=== PATIENT | male | born 1955 | race Caucasian/White ===

== ENCOUNTER 2017-07-19 16:44 | Emergency (ER) | payer SELFPAY ==
[~2017-07-19] VITALS: Ht 182.9 cm; Wt 77.3 kg
[2017-07-19] MEDS ORDERED: COZAAR 25MG25 MG/TAB PO (18:29)
[2017-07-19 18:53] VITALS: BP 136/102; PULSE 91; TEMP 97.5
== END 2017-07-19 18:53 | disposition home or self-care (01) ==
LOC: COL.ER 16:44
DX: S01.81XA Laceration without foreign body of other part of head, initial encounter (principal); S61.412A Laceration without foreign body of left hand, initial encounter; I10 Essential (primary) hypertension; Z23 Encounter for immunization; W01.0XXA Fall on same level from slipping, tripping and stumbling without subsequent striking against object, initial encounter; Y92.009 Unspecified place in unspecified non-institutional (private) residence as the place of occurrence of the external cause

== ENCOUNTER 2017-07-25 11:52 | Emergency (ER) | payer OTHER ==
[~2017-07-25 11:52] MED LIST: COZAAR 25MG25 MG/TAB PO
[2017-07-25 12:03] VITALS: BP 151/95; PULSE 80
== END 2017-07-25 12:12 | disposition home or self-care (01) ==
LOC: COL.ER 11:52
DX: S01.112D Laceration without foreign body of left eyelid and periocular area, subsequent encounter (principal); X58.XXXD Exposure to other specified factors, subsequent encounter

== ENCOUNTER → 2020-05-31 | Outpatient (CLI) | payer MEDICARE | LOC: COL.LAB 08:09 | DX: R11.0 Nausea (principal); R53.83 Other fatigue; R68.83 Chills (without fever); Z20.828 Contact with and (suspected) exposure to other viral communicable diseases ==

== ENCOUNTER 2020-09-12 12:29 | Inpatient (IN) | payer MEDICARE, MEDICAID ==
[~2020-09-12] VITALS: Ht 185.4 cm; Wt 78.1 kg
[2020-09-12 12:50] LABS: HEMATOCRIT 39.1 % (42.0-52.0); HEMOGLOBIN 12.6 g/dl (13.5-18.0); MEAN CELL VOLUME 118 fl (80.0-100.0); MEAN CORPUSCULAR HEMOGLOBIN 38 pg (27.0-31.0); MEAN CORPUSCULAR HGB CONC 32 g/dl (33.0-37.0); MEAN PLATELET VOLUME 10.6 fl (7.4-10.4); PLATELET COUNT 153 K/mm3 (130-400); RED BLOOD COUNT 3.32 M/mm3 (4.20-5.60)
[2020-09-12 13:02] LABS: ALBUMIN 4.3 gm/dL (3.5-5.0); ALKALINE PHOSPHATASE 227 U/L (50-136); ANION GAP 36 mmol/L (7-16); AST,SGOT 252 U/L (15-37); BILIRUBIN,TOTAL 3.5 mg/dL (0.0-1.0); BLOOD UREA NITROGEN 29 mg/dL (9-20); CALCIUM 8.9 mg/dL (8.4-10.2); CHLORIDE 93 mmol/L (98-107); CREATINE KINASE 90 U/L (55-170); CREATININE, serum 2.63 (0.66-1.25); GLUCOSE 205 mg/dL (74-106); POTASSIUM 3.8 mmol/L (3.4-5.0); SODIUM 138 mmol/L (137-145); TOTAL PROTEIN 7.2 gm/dL (6.4-8.2)
[2020-09-12 13:07] LABS: ALCOHOL(ethanol),MEDICAL < 10 mg/dL
[2020-09-12 13:08] LABS: ALANINE AMINOTRANSFERASE 154 U/L (4-49); CARBON DIOXIDE 9 mmol/L (22-30)
[2020-09-12 13:13] LABS: TROPONIN-I 0.013 ng/mL (0.000-0.035)
[2020-09-12 13:25] LABS: BAND 6 % (0-10); LYMPHOCYTE 32 % (20.0-51.0); METAMYELOCYTE 3 % (0-0); NEUTROPHILS 56 % (42.0-75.2)
[2020-09-12 13:26] LABS: SPHEROCYTE 1+
[2020-09-12] MEDS ORDERED: PROBIOTIC-MAJOR PO (13:38)
[2020-09-12 16:55] LABS: INR 0.9 (0.8-3.0); PROTHROMBIN TIME 10.5 SECONDS (9.7-12.8)
[2020-09-12 17:08] LABS: CALCIUM 7.7 mg/dL (8.4-10.2); CREATININE, serum 2.22 (0.66-1.25); POTASSIUM 3.6 mmol/L (3.4-5.0)
[2020-09-12 19:59] VITALS: BP 116/83; PULSE 115; TEMP 98.2
[2020-09-12 21:47] VITALS: BP 112/85; PULSE 108; TEMP 98.5
[2020-09-12 23:54] VITALS: BP 107/85; PULSE 107; TEMP 98.8
[2020-09-13] VITALS (9 sets, daily range): BP systolic 100–118; BP diastolic 75–90; PULSE 93–107; TEMP 97.6–99.6
[2020-09-13 07:06] LABS: MEAN CORPUSCULAR HGB CONC 34 g/dl (33.0-37.0); MEAN PLATELET VOLUME 11.2 fl (7.4-10.4); PLATELET COUNT 80 K/mm3 (130-400); RED BLOOD COUNT 2.57 M/mm3 (4.20-5.60)
[2020-09-13 07:11] LABS: PROTHROMBIN TIME 11.1 SECONDS (9.7-12.8)
[2020-09-13 07:13] LABS: HEMATOCRIT 28.9 % (42.0-52.0); HEMOGLOBIN 9.8 g/dl (13.5-18.0); MEAN CELL VOLUME 113 fl (80.0-100.0); MEAN CORPUSCULAR HEMOGLOBIN 38 pg (27.0-31.0)
[2020-09-13 07:18] LABS: ALBUMIN 2.8 gm/dL (3.5-5.0); BILIRUBIN,TOTAL 2.5 mg/dL (0.0-1.0); CALCIUM 7.5 mg/dL (8.4-10.2); CREATININE, serum 1.99 (0.66-1.25); TOTAL PROTEIN 5.1 gm/dL (6.4-8.2)
[2020-09-13 07:37] LABS: TROPONIN-I 0.28 ng/mL (0.000-0.035)
[2020-09-13 07:46] LABS: BAND 14 % (0-10); LYMPHOCYTE 10 % (20.0-51.0); METAMYELOCYTE 2 % (0-0); NEUTROPHILS 66 % (42.0-75.2); PLATELET ESTIMATE DECREASED (NORMAL)
[2020-09-13 07:48] LABS: ANISOCYTOSIS 1+
[2020-09-13 17:11] LABS: HEMOGLOBIN 10.8 g/dl (13.5-18.0); MEAN CELL VOLUME 111 fl (80.0-100.0); MEAN CORPUSCULAR HEMOGLOBIN 38 pg (27.0-31.0); MEAN CORPUSCULAR HGB CONC 34 g/dl (33.0-37.0); MEAN PLATELET VOLUME 10.6 fl (7.4-10.4); PLATELET COUNT 92 K/mm3 (130-400); RED BLOOD COUNT 2.86 M/mm3 (4.20-5.60); REDCELL DISTRIBUTION WIDTH-CV 12.7 % (11.5-14.5)
[2020-09-13 17:17] LABS: HEMATOCRIT 31.6 % (42.0-52.0)
[2020-09-13 17:46] LABS: FOLATE (FOLIC ACID) 17.8 ng/mL (7.0-31.4)
[2020-09-14] VITALS (14 sets, daily range): BP systolic 104–119; BP diastolic 72–97; PULSE 92–122; TEMP 97.6–99.1
[2020-09-14 07:37] LABS: BASO # 0.1 (0.0-0.2); BASO % 1.7 % (0.0-2.0); GRAN # 1.8 (1.4-6.5); GRAN % 61.9 % (42.2-75.2); HEMOGLOBIN 10.4 g/dl (13.5-18.0); LYMPH # 0.5 (1.2-3.4); LYMPH % 16.2 % (20.0-51.0); MEAN CELL VOLUME 111 fl (80.0-100.0); MEAN CORPUSCULAR HEMOGLOBIN 38 pg (27.0-31.0); MEAN CORPUSCULAR HGB CONC 35 g/dl (33.0-37.0); MEAN PLATELET VOLUME 11.2 fl (7.4-10.4); MONO # 0.5 (0.1-0.6); MONO % 18.2 % (1.7-9.3); PLATELET COUNT 86 K/mm3 (130-400); RED BLOOD COUNT 2.71 M/mm3 (4.20-5.60); REDCELL DISTRIBUTION WIDTH-CV 12.6 % (11.5-14.5)
[2020-09-14 07:49] LABS: HEMATOCRIT 30.1 % (42.0-52.0)
[2020-09-14 07:57] LABS: ALBUMIN 2.9 gm/dL (3.5-5.0); BILIRUBIN,TOTAL 2.2 mg/dL (0.0-1.0); CREATININE, serum 1.52 (0.66-1.25); MAGNESIUM 1.5 mg/dL (1.6-2.3); POTASSIUM 3.4 mmol/L (3.4-5.0); TOTAL PROTEIN 5.4 gm/dL (6.4-8.2)
[2020-09-14 08:16] LABS: TROPONIN-I 0.144 ng/mL (0.000-0.035)
[2020-09-14 11:25] LABS: COLLECTION METHOD CLEAN CATCH
[2020-09-14 11:40] LABS: CREATININE, serum 1.5 (0.66-1.25)
[2020-09-14 12:13] LABS: MUCOUS Present /lpf; PH 5 (5-8); SQUAMOUS EPITHELIAL None Seen /hpf; URINE APPEARANCE Clear; URINE BACTERIA None Seen /hpf; URINE BILIRUBIN Negative (NEGATIVE); URINE BLOOD 2+ (NEGATIVE); URINE COLOR Amber; URINE GLUCOSE 1+ (NEGATIVE); URINE KETONE Negative (NEGATIVE); URINE LEUKOCYTE ESTERASE 3+ (NEGATIVE); URINE NITRATE Negative (NEGATIVE); URINE PROTEIN(semi-quant) 1+ (NEGATIVE); URINE UROBILINOGEN Negative (NEGATIVE)
[2020-09-15] VITALS (12 sets, daily range): BP systolic 104–123; BP diastolic 79–92; PULSE 105–131; TEMP 97.5–99.7
[2020-09-15 07:00] LABS: BASO # 0.1 (0.0-0.2); BASO % 1.8 % (0.0-2.0); EOS # 0.1 (0.0-0.7); EOS % 1.8 % (0-4.0); GRAN # 1.5 (1.4-6.5); GRAN % 53.5 % (42.2-75.2); HEMOGLOBIN 10.1 g/dl (13.5-18.0); LYMPH # 0.7 (1.2-3.4); LYMPH % 23.2 % (20.0-51.0); MEAN CELL VOLUME 111 fl (80.0-100.0); MEAN CORPUSCULAR HEMOGLOBIN 38 pg (27.0-31.0); MEAN CORPUSCULAR HGB CONC 35 g/dl (33.0-37.0); MEAN PLATELET VOLUME 11.2 fl (7.4-10.4); MONO # 0.5 (0.1-0.6); MONO % 18.3 % (1.7-9.3); PLATELET COUNT 99 K/mm3 (130-400); RED BLOOD COUNT 2.63 M/mm3 (4.20-5.60); REDCELL DISTRIBUTION WIDTH-CV 12.8 % (11.5-14.5)
[2020-09-15 07:09] LABS: CALCIUM 8.5 mg/dL (8.4-10.2); CREATININE, serum 1.08 (0.66-1.25); POTASSIUM 3.5 mmol/L (3.4-5.0)
[2020-09-15 07:54] LABS: HEMATOCRIT 29.3 % (42.0-52.0)
[2020-09-16] VITALS (13 sets, daily range): BP systolic 100–126; BP diastolic 81–97; PULSE 102–128; TEMP 98.1–100.1
[2020-09-16 06:18] LABS: MEAN CELL VOLUME 112 fl (80.0-100.0); MEAN CORPUSCULAR HEMOGLOBIN 38 pg (27.0-31.0); MEAN CORPUSCULAR HGB CONC 34 g/dl (33.0-37.0); MEAN PLATELET VOLUME 10.9 fl (7.4-10.4); PLATELET COUNT 113 K/mm3 (130-400); RED BLOOD COUNT 2.65 M/mm3 (4.20-5.60); REDCELL DISTRIBUTION WIDTH-CV 12.9 % (11.5-14.5)
[2020-09-16 06:20] LABS: CALCIUM 9.2 mg/dL (8.4-10.2); CREATININE, serum 1.02 (0.66-1.25); POTASSIUM 3.9 mmol/L (3.4-5.0)
[2020-09-16 06:31] LABS: HEMATOCRIT 29.7 % (42.0-52.0)
[2020-09-16 08:38] LABS: BAND 22 % (0-10); EOSINOPHIL 2 % (0-4); LYMPHOCYTE 22 % (20.0-51.0); METAMYELOCYTE 1 % (0-0); NEUTROPHILS 31 % (42.0-75.2); PLATELET ESTIMATE DECREASED (NORMAL)
[2020-09-16 11:43] LABS: MAGNESIUM 1.1 mg/dL (1.6-2.3); PHOSPHOROUS 1.9 mg/dL (2.5-4.5)
[2020-09-17] VITALS (11 sets, daily range): BP systolic 86–122; BP diastolic 42–93; PULSE 78–149; TEMP 97–98.3
[2020-09-17 07:07] LABS: MAGNESIUM 1.6 mg/dL (1.6-2.3); POTASSIUM 3.8 mmol/L (3.4-5.0)
[2020-09-18] VITALS (11 sets, daily range): BP systolic 88–116; BP diastolic 62–85; PULSE 100–128; TEMP 97–98.6
[2020-09-18 00:36] LABS: CALCIUM 9.6 mg/dL (8.4-10.2); CREATININE, serum 1.14 (0.66-1.25); MAGNESIUM 1.5 mg/dL (1.6-2.3); PHOSPHOROUS 5.9 mg/dL (2.5-4.5); POTASSIUM 3.8 mmol/L (3.4-5.0); TOTAL PROTEIN 4.9 gm/dL (6.4-8.2)
[2020-09-18 00:37] LABS: ALBUMIN 2.6 gm/dL (3.5-5.0); BILIRUBIN,TOTAL 1.3 mg/dL (0.0-1.0); HEMATOCRIT 29.2 % (42.0-52.0); HEMOGLOBIN 9.8 g/dl (13.5-18.0); MEAN CELL VOLUME 113 fl (80.0-100.0); MEAN CORPUSCULAR HEMOGLOBIN 38 pg (27.0-31.0); MEAN CORPUSCULAR HGB CONC 34 g/dl (33.0-37.0); RED BLOOD COUNT 2.59 M/mm3 (4.20-5.60)
[2020-09-18 00:38] LABS: MEAN PLATELET VOLUME 10.2 fl (7.4-10.4); PLATELET COUNT 134 K/mm3 (130-400); REDCELL DISTRIBUTION WIDTH-CV 13.4 % (11.5-14.5)
[2020-09-18 00:40] LABS: BAND 3 % (0-10); BASOPHIL 3 % (0-2); EOSINOPHIL 3 % (0-4); LYMPHOCYTE 19 % (20.0-51.0); NEUTROPHILS 56 % (42.0-75.2); PLATELET ESTIMATE NORMAL (NORMAL)
[2020-09-18 00:41] LABS: STOMATOCYTE 1+
[2020-09-18 08:16] LABS: HEMOGLOBIN 10.1 g/dl (13.5-18.0); MEAN CELL VOLUME 113 fl (80.0-100.0); MEAN CORPUSCULAR HEMOGLOBIN 38 pg (27.0-31.0); MEAN CORPUSCULAR HGB CONC 33 g/dl (33.0-37.0); MEAN PLATELET VOLUME 11.5 fl (7.4-10.4); PLATELET COUNT 150 K/mm3 (130-400); RED BLOOD COUNT 2.69 M/mm3 (4.20-5.60); REDCELL DISTRIBUTION WIDTH-CV 13.6 % (11.5-14.5)
[2020-09-18 08:18] LABS: HEMATOCRIT 30.3 % (42.0-52.0)
[2020-09-18 08:36] LABS: ALBUMIN 2.6 gm/dL (3.5-5.0); BILIRUBIN,TOTAL 1.2 mg/dL (0.0-1.0); CALCIUM 9.4 mg/dL (8.4-10.2); CREATININE, serum 1.07 (0.66-1.25); MAGNESIUM 1.4 mg/dL (1.6-2.3); POTASSIUM 3.5 mmol/L (3.4-5.0)
[2020-09-18 09:23] LABS: BAND 10 % (0-10); EOSINOPHIL 2 % (0-4); LYMPHOCYTE 29 % (20.0-51.0); NEUTROPHILS 42 % (42.0-75.2)
[2020-09-18 09:24] LABS: PLATELET ESTIMATE NORMAL (NORMAL); TARGET CELLS 1+
[2020-09-19 03:38] VITALS: BP 117/75; PULSE 105; TEMP 97.3
[2020-09-19 07:25] VITALS: BP 119/78; PULSE 98; TEMP 98
[2020-09-19 07:26] LABS: BASO # 0.1 (0.0-0.2); BASO % 2.3 % (0.0-2.0); EOS # 0.1 (0.0-0.7); EOS % 2.5 % (0-4.0); GRAN # 1.6 (1.4-6.5); GRAN % 46.2 % (42.2-75.2); HEMOGLOBIN 10.3 g/dl (13.5-18.0); LYMPH % 28.9 % (20.0-51.0); MEAN CELL VOLUME 114 fl (80.0-100.0); MEAN CORPUSCULAR HEMOGLOBIN 38 pg (27.0-31.0); MEAN CORPUSCULAR HGB CONC 34 g/dl (33.0-37.0); MEAN PLATELET VOLUME 11.7 fl (7.4-10.4); MONO # 0.7 (0.1-0.6); MONO % 19.3 % (1.7-9.3); PLATELET COUNT 180 K/mm3 (130-400); RED BLOOD COUNT 2.68 M/mm3 (4.20-5.60); REDCELL DISTRIBUTION WIDTH-CV 13.6 % (11.5-14.5)
[2020-09-19 07:31] LABS: HEMATOCRIT 30.5 % (42.0-52.0)
[2020-09-19 07:45] LABS: ALBUMIN 2.8 gm/dL (3.5-5.0); BILIRUBIN,TOTAL 1.4 mg/dL (0.0-1.0); CALCIUM 9.5 mg/dL (8.4-10.2); CREATININE, serum 1.26 (0.66-1.25); MAGNESIUM 1.9 mg/dL (1.6-2.3); PHOSPHOROUS 4.2 mg/dL (2.5-4.5); POTASSIUM 3.9 mmol/L (3.4-5.0); TOTAL PROTEIN 5.2 gm/dL (6.4-8.2)
[2020-09-19] MEDS ORDERED: TOPROL XL 25MG25 MG PO (09:46)
[2020-09-19] MEDS ORDERED: MAG-OX 400400 MG/TAB PO (09:46)
[2020-09-19] MEDS ORDERED: DUO-KAPS1 CAP PO (09:47)
[2020-09-19] MEDS ORDERED: FOLIC ACID 11 MG/TA1 PO (09:47)
[2020-09-19] MEDS ORDERED: ASPIRIN E.C. 8181 MG PO (09:47)
[2020-09-19] MEDS ORDERED: THIAMINE 1100 MG/TAB PO (09:47)
[2020-09-19 11:44] VITALS: BP 96/63; PULSE 124; TEMP 97.4
[2020-09-19 12:31] VITALS: BP_SYST 11.8
== END 2020-09-19 13:49 | DRG 922 ==
LOC: COL.ER 12:29 → MEDICAL 15:50
PROVIDERS: Hospitalist; Nurse Practitioner Family; Physician Assistant; Urology; ADMIT Student in an Organized Health Care Education/Training Program
PROC: 0T7D8ZZ Dilation of Urethra, Via Natural or Artificial Opening Endoscopic (ICD-10-PCS; principal; 2020-09-13 17:20)
DX: T68.XXXA Hypothermia, initial encounter (principal); I21.A1 Myocardial infarction type 2; T33.522A Superficial frostbite of left hand, initial encounter; T33.521A Superficial frostbite of right hand, initial encounter; T33.532A Superficial frostbite of left finger(s), initial encounter; T33.531A Superficial frostbite of right finger(s), initial encounter; E87.2 Acidosis; N17.9 Acute kidney failure, unspecified; Q61.3 Polycystic kidney, unspecified; I47.2 Ventricular tachycardia; N18.4 Chronic kidney disease, stage 4 (severe); D61.818 Other pancytopenia; N39.0 Urinary tract infection, site not specified; F10.10 Alcohol abuse, uncomplicated; E86.0 Dehydration; R73.9 Hyperglycemia, unspecified; D53.9 Nutritional anemia, unspecified; I12.9 Hypertensive chronic kidney disease with stage 1 through stage 4 chronic kidney disease, or unspecified chronic kidney disease; E87.6 Hypokalemia; E83.42 Hypomagnesemia; M50.322 Other cervical disc degeneration at C5-C6 level; M47.812 Spondylosis without myelopathy or radiculopathy, cervical region; M48.02 Spinal stenosis, cervical region; E83.39 Other disorders of phosphorus metabolism; R94.31 Abnormal electrocardiogram [ECG] [EKG]; N35.912 Unspecified bulbous urethral stricture, male; Z20.822 Contact with and (suspected) exposure to COVID-19; X31.XXXA Exposure to excessive natural cold, initial encounter
CPT/HCPCS: 99223-AI; 99232-AI; 99239; A4314; J0690; J1644; J2060; J2543; J3370; J3475; J7030; J7050; J7120

== ENCOUNTER → 2020-10-11 | Outpatient (CLI) | payer OTHER, MEDICARE, MEDICAID ==
[~2020-10-11] MED LIST changes: +ASPIRIN E.C. 8181 MG PO; +CEPHALEXIN500 M1 PO; +CRESTOR5 MG PO; +DESYREL 100MG100 MG PO; +DOXYCYCLINE 10100 MG PO; +DUO-KAPS1 CAP PO; +ELIQUIS 5MG PO; +FOLIC ACID 11 MG/TA1 PO; +MAG-OX 400400 MG/TAB PO; +PROBIOTIC-MAJOR PO; +THIAMINE 1100 MG/TAB PO; +TOPROL XL 25MG25 MG PO; +ZYLOPRIM 100MG100 MG PO
[2020-10-11 20:42] LABS: MUCOUS Present /lpf; PH 8 (5-8); URINE APPEARANCE Hazy; URINE BACTERIA Occasional /hpf; URINE BILIRUBIN Negative (NEGATIVE); URINE BLOOD Negative (NEGATIVE); URINE COLOR Yellow; URINE GLUCOSE Negative (NEGATIVE); URINE KETONE Negative (NEGATIVE); URINE LEUKOCYTE ESTERASE 3+ (NEGATIVE); URINE NITRATE Positive (NEGATIVE); URINE PROTEIN(semi-quant) Negative (NEGATIVE); URINE RBC 0-2 /hpf; URINE UROBILINOGEN Negative (NEGATIVE); URINE WBC 20-50 /hpf
[2020-10-11 20:57] LABS: IRON,SERUM 76 ug/dL (35-150)
[2020-10-11 20:59] LABS: ALBUMIN 2.8 gm/dL (3.5-5.0); BILIRUBIN,TOTAL 0.8 mg/dL (0.0-1.0); CALCIUM 9.2 mg/dL (8.4-10.2); CREATININE, serum 1.12 (0.66-1.25); POTASSIUM 4.5 mmol/L (3.4-5.0); TOTAL PROTEIN 5.2 gm/dL (6.4-8.2); URIC ACID 9.5 mg/dL (3.5-8.5)
[2020-10-11 21:06] LABS: TOTAL IRON BINDING CAPACITY 191 ug/dL (261-462)
[2020-10-12 09:21] LABS: COLLECTION METHOD CLEAN CATCH
== END ==
LOC: ZLAB.STJ 20:06
PROVIDERS: Internal Medicine Nephrology
DX: I12.9 Hypertensive chronic kidney disease with stage 1 through stage 4 chronic kidney disease, or unspecified chronic kidney disease (principal); N18.31 Chronic kidney disease, stage 3a; D63.1 Anemia in chronic kidney disease

== ENCOUNTER → 2020-10-31 | Outpatient (CLI) | payer MEDICARE, MEDICAID | LOC: COL.RAD 10-19 12:00 | DX: N18.31 Chronic kidney disease, stage 3a (principal); N28.1 Cyst of kidney, acquired ==

== ENCOUNTER 2021-03-15 17:50 | Emergency (ER) | payer MEDICARE, MEDICAID ==
[~2021-03-15] VITALS: Ht 213.4 cm; Wt 75.0 kg
[~2021-03-15 17:50] MED LIST changes: -CEPHALEXIN500 M1 PO; -CRESTOR5 MG PO; -DESYREL 100MG100 MG PO; -DOXYCYCLINE 10100 MG PO; -ELIQUIS 5MG PO; -ZYLOPRIM 100MG100 MG PO
[2021-03-15 18:09] VITALS: TEMP 98.3
[2021-03-15] MEDS ORDERED: DESYREL 100MG100 MG PO (19:07)
[2021-03-15] MEDS ORDERED: ZYLOPRIM 100MG100 MG PO (19:07)
[2021-03-15] MEDS ORDERED: CEPHALEXIN500 M1 PO (19:07)
[2021-03-15] MEDS ORDERED: ELIQUIS 5MG PO (19:08)
[2021-03-15] MEDS ORDERED: CRESTOR5 MG PO (19:08)
[2021-03-15 19:40] LABS: BASO # 0.1 (0.0-0.2); BASO % 0.9 % (0.0-2.0); EOS # 0.2 (0.0-0.7); GRAN # 4.1 (1.4-6.5); HEMOGLOBIN 11.8 g/dl (13.5-18.0); LYMPH # 1.2 (1.2-3.4); LYMPH % 18.7 % (20.0-51.0); MEAN CELL VOLUME 102 fl (80.0-100.0); MEAN CORPUSCULAR HEMOGLOBIN 33 pg (27.0-31.0); MEAN CORPUSCULAR HGB CONC 32 g/dl (33.0-37.0); MEAN PLATELET VOLUME 10.1 fl (7.4-10.4); MONO # 0.8 (0.1-0.6); MONO % 13.1 % (1.7-9.3); PLATELET COUNT 240 K/mm3 (130-400); RED BLOOD COUNT 3.59 M/mm3 (4.20-5.60); REDCELL DISTRIBUTION WIDTH-CV 13.3 % (11.5-14.5)
[2021-03-15 19:44] LABS: HEMATOCRIT 36.5 % (42.0-52.0)
[2021-03-15 20:02] LABS: BILIRUBIN,TOTAL 0.6 mg/dL (0.0-1.0); C-REACTIVE PROTEIN 2.7 mg/dL (0.0-0.9); CALCIUM 9.5 mg/dL (8.4-10.2); CREATININE, serum 1.2 (0.66-1.25); POTASSIUM 3.6 mmol/L (3.4-5.0); TOTAL PROTEIN 6.8 gm/dL (6.4-8.2)
[2021-03-15] MEDS ORDERED: DOXYCYCLINE 10100 MG PO (20:23)
[2021-03-15 21:25] VITALS: BP 123/85; PULSE 78
== END 2021-03-15 21:25 | disposition home or self-care (01) ==
LOC: COL.ER 17:50
PROVIDERS: Nurse Practitioner
DX: L03.313 Cellulitis of chest wall (principal); I12.9 Hypertensive chronic kidney disease with stage 1 through stage 4 chronic kidney disease, or unspecified chronic kidney disease; N18.2 Chronic kidney disease, stage 2 (mild); I25.10 Atherosclerotic heart disease of native coronary artery without angina pectoris; Z85.828 Personal history of other malignant neoplasm of skin; Z79.01 Long term (current) use of anticoagulants
CPT/HCPCS: J0696; J7030

== ENCOUNTER 2022-04-02 10:48 | Inpatient (IN) | payer MEDICARE, MEDICAID ==
[~2022-04-02] VITALS: Ht 182.9 cm; Wt 76.0 kg
[~2022-04-02 10:48] MED LIST changes: +CEPHALEXIN500 M1 PO; +CRESTOR5 MG PO; +DESYREL 100MG100 MG PO; +DOXYCYCLINE 10100 MG PO; +ELIQUIS 5MG PO; +ZYLOPRIM 100MG100 MG PO
[2022-04-02 11:27] LABS: BASO % 0.4 % (0.0-2.0); GRAN # 4.2 K/mm3 (1.4-6.5); GRAN % 78.9 % (42.2-75.2); HEMOGLOBIN 11.4 g/dl (13.5-18.0); LYMPH # 0.4 K/mm3 (1.2-3.4); LYMPH % 7.3 % (20.0-51.0); MEAN CELL VOLUME 109 fl (80.0-100.0); MEAN CORPUSCULAR HEMOGLOBIN 38 pg (27-31); MEAN CORPUSCULAR HGB CONC 34 g/dl (33.0-37.0); MEAN PLATELET VOLUME 10.8 fl (7.4-10.4); MONO # 0.7 K/mm3 (0.1-0.6); MONO % 12.8 % (1.7-9.3); PLATELET COUNT 117 K/mm3 (130-400); RED BLOOD COUNT 3.04 M/mm3 (4.20-5.60); REDCELL DISTRIBUTION WIDTH-CV 12.3 % (11.5-14.5)
[2022-04-02 11:29] LABS: HEMATOCRIT 33.2 % (42.0-52.0)
[2022-04-02 11:33] LABS: INR 1.4 (0.8-3.0); PROTHROMBIN TIME 16.1 SECONDS (9.7-12.8)
[2022-04-02 11:40] LABS: ALBUMIN 3.2 gm/dL (3.4-4.8); BILIRUBIN,TOTAL 1.3 mg/dL (0.2-1.2); CALCIUM 9.3 mg/dL (8.4-10.2); CREATININE, serum 0.9 mg/dL (0.72-1.25); MAGNESIUM 1.9 mg/dL (1.6-2.6); POTASSIUM 3.6 mmol/L (3.5-4.5); TOTAL PROTEIN 6.4 gm/dL (6.2-8.1)
[2022-04-02 12:00] LABS: TROPONIN-I 0.01 ng/mL (0.00-0.033); TSH w REFLEX 1.264 uIU/mL (0.350-4.940)
[2022-04-02 13:19] LABS: COLLECTION METHOD CLEAN CATCH
[2022-04-02 13:33] LABS: MUCOUS Present (NOT PRESENT); SQUAMOUS EPITHELIAL 0-2 /hpf (0-10); URINE BACTERIA Moderate /hpf (NONE SEEN); URINE RBC >50 /hpf (0-2)
[2022-04-02 13:36] LABS: URINE APPEARANCE Hazy (CLEAR/HAZY); URINE COLOR Amber (YELLOW); URINE PROTEIN(semi-quant) 3+ (NEGATIVE)
[2022-04-02 13:37] LABS: URINE BLOOD 3+ (NEGATIVE); URINE GLUCOSE Negative (NEGATIVE); URINE KETONE 3+ (NEGATIVE); URINE NITRATE Positive (NEGATIVE); URINE UROBILINOGEN 0.2 E.U/dL (0.2-1.0)
[2022-04-02 16:06] LABS: PHOSPHOROUS 2.4 mg/dL (2.3-4.7)
[2022-04-02 16:19] VITALS: BP 169/97; PULSE 102; TEMP 98.1
[2022-04-02 18:43] VITALS: BP 157/97; PULSE 113
[2022-04-02 19:02] VITALS: BP 147/100; PULSE 116; TEMP 98.2
[2022-04-02 19:33] VITALS: BP 139/100; PULSE 113; TEMP 98.1
[2022-04-02 22:35] VITALS: BP 142/88; PULSE 112; TEMP 98.4
--- NOTE | 2022-04-02 23:08 | NUR ---
Shift assessment preformed. Scheduled medcations given. Patient given 1 mg of ativan for CIWA score of 5. Patient has generalized weakness. Remainder of neuro assessment WNL. Tremors noted. VSS. Patient A&O. Fluids running as ordered. Patient given prn tylenol for back pain. Patient denies any further pain, discomfort, SOA, or further needs a this time. Call light in reach. Fall precautions in place.
[2022-04-03] VITALS (13 sets, daily range): BP systolic 125–157; BP diastolic 81–104; PULSE 81–108; TEMP 97.7–98.3
--- NOTE | 2022-04-03 02:29 | NUR ---
Patient scoring 4 on CIWA, reports seeing "demons" in the dark. Ativan given per protocol.
--- NOTE | 2022-04-03 05:52 | NUR ---
Remainder of night has been uneventful. Patient has been able to rest with no further incidents of hallucinations. Ativan given per protocol. Denies any pain or discomfort. Neuro checks have remainded unchanged. Call light in reach. Fall precuations in place. VSS.
[2022-04-03 06:48] LABS: BASO % 0.8 % (0.0-2.0); EOS % 0.6 % (0.0-4.0); GRAN # 2.4 K/mm3 (1.4-6.5); GRAN % 66.3 % (42.2-75.2); LYMPH # 0.6 K/mm3 (1.2-3.4); LYMPH % 16.4 % (20.0-51.0); MEAN CELL VOLUME 108 fl (80.0-100.0); MEAN CORPUSCULAR HGB CONC 36 g/dl (33.0-37.0); MEAN PLATELET VOLUME 11.7 fl (7.4-10.4); MONO # 0.6 K/mm3 (0.1-0.6); MONO % 15.6 % (1.7-9.3); PLATELET COUNT 98 K/mm3 (130-400)
[2022-04-03 07:01] LABS: HEMATOCRIT 25.9 % (42.0-52.0); MEAN CORPUSCULAR HEMOGLOBIN 38 pg (27-31)
[2022-04-03 07:02] LABS: HEMOGLOBIN 9.2 g/dl (13.5-18.0)
[2022-04-03 07:05] LABS: ALBUMIN 2.6 gm/dL (3.4-4.8); BILIRUBIN,TOTAL 1.3 mg/dL (0.2-1.2); CALCIUM 8.4 mg/dL (8.4-10.2); CREATININE, serum 0.97 mg/dL (0.72-1.25); POTASSIUM 3.5 mmol/L (3.5-4.5); TOTAL PROTEIN 5.1 gm/dL (6.2-8.1)
--- NOTE | 2022-04-03 10:00 | NUR ---
PATIENT HAS BEOME INCONTINENT. BED CHANGED. PULL UP APPLIED. PATIENT AROUND 0800 ACCIDENTLY PULLED OUT IV, UNWITNESSED. NEW IV INITIATED BY THIS RN, LH 20G, PATIENT TOLERATED WELL. NO ISSUES.
--- NOTE | 2022-04-03 12:05 | NUR ---
PATIENT FOUND SIDEWAYS, STAREING UP AT THE CEILING, STATED HE WAS WATCHING THE BASKETBALL GAME. WHEN CHANGING THE PATIENT D/T AN INCONTINENT EPISODE, HE SAID THERE WAS A LOT OF PEE BECAUSE " THERES TWO PENIS'S SO I HAVE MORE PEE." REDIRECTED. PATIENT ANSWERED ALL ORIENTATION QUESTIONS CORRECTLY.
--- NOTE | 2022-04-03 13:24 | NUR ---
Initial visit; Patient confused and wanted to get out of bed to go to the restroom. Commodity Merchant retrieved his nurse as he had fallen earlier and know she wanted to know he was trying to get up again. She thanked film vault supervisor.
--- NOTE | 2022-04-03 15:42 | NUR ---
Field Training Agent met with patient to discuss discharge planning. Patient lives alone in [place] and sees Dr. Aldridge for primary care. Patient obtains medications either by mail or at [facility]. Patient has a walker at home and reports he has been unsteady on his feet. Patient reports he drinks daily. Patient thinks his three children Kevin (ph#[phone]), Jose, and Fady are his DPOA-HC. Patient is not . SW reviewed PT recommendation for post acute rehab and patient is agreeable to this. Patient's preferences are 1)[facility] and 2) [facility]. SW contacted [facility] and gave referral. SW also contacted Albert at [facility] and faxed referral. SW contacted patient's son, Kevin to provide update. Kevin is interested in Assisted Living for patient so SW discussed options and payer source with him. Discharge Plan: Pending referrals. [facility] vs SNF.
--- NOTE | 2022-04-03 18:09 | NUR ---
PATIENT CALM, HOWEVER, KEEPS INSISTING HE NEEDS HIS MORNING MEDICATION. REORIENTED TO TIME OF DAY. PATIENT ASKED FOR HIS AFTERNOON MEDICATIONS. AGAIN, REORIENTED. PATIENT CURRENTLY IN BED, BED ALARM ON, BELONGINGS, WATER, CALLLIGHT/PHONES WITH IN REACH.
--- NOTE | 2022-04-03 18:22 | NUR ---
WHILE CHANGING PATIENT D/T ANOTHER INCONINENT EPISODE, HE SAID "YOU GIRLS ARE CHANGING YOUR MOTHER." REORIENTED, HOWEVER HE AGAIN ANSWERED ORIENTATIO QUESTIONS CORRECTLY. HE DID MENTION HE HAS BEEN HAVING THE "STRANGEST DREAMS."
--- NOTE | 2022-04-03 18:45 | NUR ---
BEDSIDE HAND OFF. PATIENT CURRENTLY EATING DINNER, RESTING IN BED. BED ALARM ON. IV FLUIDS INFUSING. PATIENT WITH NO COMPLAINTS.
[2022-04-04] VITALS (11 sets, daily range): BP systolic 133–163; BP diastolic 87–113; PULSE 86–114; TEMP 97.8–98.5
--- NOTE | 2022-04-04 00:58 | NUR ---
Shift assessment preformed. Scheduled medications given. Patient drowsy, but oriented. Scoring a 5 on CIWA, ativan given per protocol. Patient extremely weak. Is able to lift and hold BUE. Lifts BLE but they immediately fall back to the bed. Patient denies any pain, discomfort, SOA, or further needs at his time. Fluids running as ordered. Call light in reach. Fall precautions in place.
--- NOTE | 2022-04-04 05:21 | NUR ---
Patient has had an unevenful night. Ativan given per protocol. IV fluids running as ordered. VSS. Patient denies any pain, discomfort, or further needs at this time. Neuro checks remain unchanged. Call light in reach. Fall precautions in place.
--- NOTE | 2022-04-04 18:10 | NUR ---
PATIENT CHANGED AND BED CHAGNE DUE TO INCONTINENCE.
--- NOTE | 2022-04-04 18:15 | NUR ---
PATIENT ASSESSED AND ATIVAN GIVEN PER PROTOCOL. PATIENT CHANGED. PATIENT ALERT. STILL DISORIENTED TO PLACE AND WHY HE IS HERE. PATIENT CURRENTLY SITTING UP,EATING DINNER WITH SET UP ASSIST. BED ALARM ON. CALL LIGHT WITH IN REACH.
--- NOTE | 2022-04-04 20:35 | NUR ---
THE PATIENT IS A&OX3 BUT DOES HAVE DELAYED RESPONSE. THIS APPEARS TO BE FROM THE ATIVAN. THE PATIENT DENIES ANY NEEDS AT THIS TIME. FULL ASSESSMENT COMPLETED. THIS RN HAS MADE NURSING JUDGEMENT NOT TO GIVE 2000 PRN ATIVAN DUE TO PT DROWSINESS. THE CIWA SCORE IS 4, DUE TO SLIGHTLY ELEVATED BP AND HR WELL SOME MILD TREMOR. WILL REASSESS NEED AT 2200.
[2022-04-05] VITALS (12 sets, daily range): BP systolic 100–158; BP diastolic 64–109; PULSE 64–117; TEMP 97.3–98.7
--- NOTE | 2022-04-05 05:46 | NUR ---
PT'S BP HAS BEEN ELEVATED THROUGHOUT THE NIGHT.
[2022-04-05 13:24] LABS: BASO # 0.1 K/mm3 (0.0-0.2); BASO % 1.2 % (0.0-2.0); EOS # 0.1 K/mm3 (0.0-0.7); EOS % 2.6 % (0.0-4.0); GRAN # 2.7 K/mm3 (1.4-6.5); HEMOGLOBIN 11.1 g/dl (13.5-18.0); LYMPH # 0.8 K/mm3 (1.2-3.4); LYMPH % 18.7 % (20.0-51.0); MEAN CELL VOLUME 107 fl (80.0-100.0); MEAN CORPUSCULAR HEMOGLOBIN 38 pg (27-31); MEAN CORPUSCULAR HGB CONC 35 g/dl (33.0-37.0); MEAN PLATELET VOLUME 10.8 fl (7.4-10.4); MONO # 0.6 K/mm3 (0.1-0.6); MONO % 13.6 % (1.7-9.3); PLATELET COUNT 154 K/mm3 (130-400); RED BLOOD COUNT 2.93 M/mm3 (4.20-5.60); REDCELL DISTRIBUTION WIDTH-CV 11.8 % (11.5-14.5)
[2022-04-05 13:25] LABS: HEMATOCRIT 31.4 % (42.0-52.0)
[2022-04-05 13:37] LABS: ALBUMIN 2.8 gm/dL (3.4-4.8); BILIRUBIN,TOTAL 1.5 mg/dL (0.2-1.2); CALCIUM 9.1 mg/dL (8.4-10.2); CREATININE, serum 0.74 mg/dL (0.72-1.25); POTASSIUM 3.1 mmol/L (3.5-4.5); TOTAL PROTEIN 5.7 gm/dL (6.2-8.1)
--- NOTE | 2022-04-05 15:41 | NUR ---
International Trade Specialist faxed clinical updates to Albert at [facility]. JULIAN then faxed clinicals to [facility] for prior authorization. JULIAN met with patient's brother, Robert (ph#[phone]) at bedside with patient. Patient's other two siblings, Lyubov and Anderson were on speakerphone. JULIAN updated them on discharge plan and they are in agreement. They are hopeful after post acute rehab that patient could possibly go to alcohol rehab. JULIAN notified Albert that patient could possibly be ready for discharge Friday pending progress. Albert is unsure if they will have a bed by Friday but will keep JULIAN updated.
--- NOTE | 2022-04-05 20:30 | NUR ---
Pt lying down in bed. Alert and partially oriented. Shift assessment completed. Pt denies any pain or disconfort at this moment. Pt remains in fall precautions and seizure precautions. Ciwa score of 3. Incontinence episode. Clean gown and sheets provided. Left wrist INT CDI. Left hand peripheral IV CDI, no redness or edema. Fluids running. Call light within reach.
--- NOTE | 2022-04-05 20:45 | NUR ---
Agree with assessment of STONE RUBBER- pt is partially oriented, will medicate with Ativan per [facility] protocol.
[2022-04-06] VITALS (9 sets, daily range): BP systolic 122–160; BP diastolic 89–109; PULSE 81–95; TEMP 97.2–98.4
[2022-04-06 07:22] LABS: ALBUMIN 2.6 gm/dL (3.4-4.8); BILIRUBIN,TOTAL 1.3 mg/dL (0.2-1.2); CALCIUM 8.9 mg/dL (8.4-10.2); CREATININE, serum 0.75 mg/dL (0.72-1.25); POTASSIUM 3.5 mmol/L (3.5-4.5)
[2022-04-06 07:56] LABS: HEMOGLOBIN 10.9 g/dl (13.5-18.0); MEAN CELL VOLUME 109 fl (80.0-100.0); MEAN CORPUSCULAR HEMOGLOBIN 39 pg (27-31); MEAN CORPUSCULAR HGB CONC 35 g/dl (33.0-37.0); MEAN PLATELET VOLUME 11.4 fl (7.4-10.4); PLATELET COUNT 149 K/mm3 (130-400); RED BLOOD COUNT 2.83 M/mm3 (4.20-5.60)
--- NOTE | 2022-04-06 08:00 | NUR ---
NO ATIVAN GIVEN FOR CIWA OF 8 D/T ADMINISTRAION OF HOME MED OF [place]. WILL RECHECK PATIENT AT THE 10AM ANITHA AND GIVE MEDS ACCORDINGLY.
[2022-04-06 08:03] LABS: HEMATOCRIT 30.9 % (42.0-52.0)
[2022-04-06 09:41] LABS: EOSINOPHIL 2 % (0-4); LYMPHOCYTE 30 % (20.0-51.0); NEUTROPHILS 54 % (42.0-75.2)
[2022-04-06 09:45] LABS: PLATELET ESTIMATE NORMAL (NORMAL)
--- NOTE | 2022-04-06 16:46 | NUR ---
Clinical updates faxed to [facility]; awaiting [facility] authorization.
--- NOTE | 2022-04-06 17:00 | NUR ---
PATIENT SEEM TO HAVE IMPROVED. NO ATIVAN PER CIWA PROTOCOL TODAY. PREVIOUSLY INCONTINENT. UNABLE TO LIFT MED CUP OR DRINKS/FOOD TO MOUTH WITHOUT ASSIST. UNABLE TO ROLL. NOW PATIENT ABLE TO TAKE MEDS, EAT AND DRINK INDEPENDENTLY. INTERMITTANTLY INCONTINENT OF BLADDER, OCASSIONALLY ABLE TO USE URINAL. HE APPEARS TO BE MORE AWAKE AND ALERT TODAY.
--- NOTE | 2022-04-06 21:00 | NUR ---
Pt lying down in bed. Shift assessment completed. Pt looks more alert and oriented than previous night. CIWA score of 3. Left hand peripheral line, and Left wrist INT look CDI, no edema or redness. Dressing on upper back and dressing on saccral area, both remain in place. All medications administered per Emar. No pain or disconfort is reported at this time. Pt occasionally still requiring help with urinal. Fall precautions remain in place. Call light within reach.
[2022-04-07] VITALS (11 sets, daily range): BP systolic 137–163; BP diastolic 86–104; PULSE 81–105; TEMP 97.6–98.8
--- NOTE | 2022-04-07 05:28 | NUR ---
Pt had 3 incontinent episodes during the night. Bed sheets and clean gown were provided. Last CIWA score of 3. Call light within reach.
--- NOTE | 2022-04-07 06:45 | NUR ---
Did receive Ativan 1mg po x3 this shift per CIWA protocol- more alert/less confused , LR continues at 50cc/hr to left wrist.
--- NOTE | 2022-04-07 08:38 | NUR ---
Shift assessment preformed. Scheduled medications given. Patient A&O. Patient hypertensive, scheduled BP medication given. Remainder of VSS. Patient scoring 3 on CIWA, protocol followed. Fluids running as ordered. Patient denies any pain, discomfort, SOA, or further needs at this time. Call light in reach. Fall precautions in place.
--- NOTE | 2022-04-07 19:17 | NUR ---
Patient has had an uneventful day. [facility] protocol DC'd per Dr. Wiseman. Patient A&O. VSS. Denies any pain, discomfort, SOA, or further needs at this time. Patient continues to be incontinent, bladder scan after void only showed 30 ml of residual. Call light in reach. Fall precautions in place.
--- NOTE | 2022-04-07 21:00 | NUR ---
Pt lying down in bed. Incontinent episode. Clean gown and sheets provided. A&O x4, VSS. Shift assessment completed. Pt verbalizes experiencing mild SOB. Lungs sound clear to auscultation. O2 sat at 95%. This PUBLICATION DESIGNER notified charge master coordinator nurse. Pt seems concerned for BP readings. All medications administered per emar. Will continue monitoring. Fall risk precautions remain in place. Call light within reach.
[2022-04-08 04:14] VITALS: BP 141/82; PULSE 82; TEMP 98.3
--- NOTE | 2022-04-08 08:39 | NUR ---
0800 Pt found awake in bed eating breakfast. Morning medications administered. Pt is A&Ox4. Pt complains of SOB. LCTA. O2sat at 96% within normal range. Telemetry on. INT on L wrist intact; no edema, redness, or filtration. Dressings on upper and lower back CDI. SCDs on. Call light within reach.
[2022-04-08 09:07] VITALS: BP 108/80; PULSE 87; TEMP 98.6
[2022-04-08 11:38] LABS: COLLECTION METHOD CLEAN CATCH
[2022-04-08 11:45] LABS: SQUAMOUS EPITHELIAL None Seen /hpf (0-10); URINE APPEARANCE Clear (CLEAR/HAZY); URINE BACTERIA None Seen /hpf (NONE SEEN); URINE COLOR Yellow (YELLOW); URINE RBC 0-2 /hpf (0-2)
[2022-04-08 11:46] LABS: PH 8.5 (5.0-8.5); URINE BLOOD Negative (NEGATIVE); URINE GLUCOSE Negative (NEGATIVE); URINE KETONE Negative (NEGATIVE); URINE NITRATE Negative (NEGATIVE); URINE PROTEIN(semi-quant) Negative (NEGATIVE); URINE UROBILINOGEN 0.2 E.U/dL (0.2-1.0)
[2022-04-08 13:16] VITALS: BP 110/74; PULSE 85; TEMP 98.7
--- NOTE | 2022-04-08 15:17 | NUR ---
Clinical updates faxed to Albert at [facility].
[2022-04-08 17:39] VITALS: BP 119/70; PULSE 87; TEMP 98.2
[2022-04-08 19:43] VITALS: BP 132/90; PULSE 87; TEMP 98.8
[2022-04-08 23:21] VITALS: BP 142/88; PULSE 83; TEMP 98.2
[2022-04-09 03:47] VITALS: BP 113/76; PULSE 75; TEMP 98.6
[2022-04-09 06:33] LABS: BASO # 0.1 K/mm3 (0.0-0.2); BASO % 1.6 % (0.0-2.0); EOS # 0.1 K/mm3 (0.0-0.7); EOS % 2.4 % (0.0-4.0); GRAN # 3.1 K/mm3 (1.4-6.5); GRAN % 63.3 % (42.2-75.2); HEMOGLOBIN 11.5 g/dl (13.5-18.0); LYMPH # 0.9 K/mm3 (1.2-3.4); LYMPH % 17.4 % (20.0-51.0); MEAN CELL VOLUME 109 fl (80.0-100.0); MEAN CORPUSCULAR HEMOGLOBIN 38 pg (27-31); MEAN CORPUSCULAR HGB CONC 35 g/dl (33.0-37.0); MEAN PLATELET VOLUME 10.2 fl (7.4-10.4); MONO # 0.7 K/mm3 (0.1-0.6); MONO % 13.9 % (1.7-9.3); PLATELET COUNT 242 K/mm3 (130-400); RED BLOOD COUNT 3.02 M/mm3 (4.20-5.60); REDCELL DISTRIBUTION WIDTH-CV 12.3 % (11.5-14.5)
[2022-04-09 06:49] LABS: BILIRUBIN,TOTAL 1.3 mg/dL (0.2-1.2); CALCIUM 9.6 mg/dL (8.4-10.2); CREATININE, serum 0.84 mg/dL (0.72-1.25); TOTAL PROTEIN 5.8 gm/dL (6.2-8.1)
[2022-04-09 07:24] VITALS: BP 125/89; PULSE 82; TEMP 98.7
[2022-04-09 11:57] VITALS: BP 110/78; PULSE 88; TEMP 98.3
[2022-04-09 15:28] VITALS: BP 135/89; PULSE 87; TEMP 97.9
--- NOTE | 2022-04-09 15:34 | NUR ---
See Supervisor received a message from [employer] approving authorization for [facility] (auth#[id number], ref#[id number]). JULIAN provided update to Albert that insurance has accepted, however his team is hesitant to accept due to patient's drinking. JULIAN inquired about prior issues during patient's last SNF stay and Albert advised there were no issues. JULIAN requested the team reconsider as patient has detoxed, will not be drinking at SNF, and went there previously with no issue. Albert followed up with JULIAN and advised the earliest they would have a bed for patient is . JULIAN faxed additional referrals to [facility] and [facility]. JULIAN updated patient who expressed that [facility] SN[facility] is his first preference. JULIAN verbalized understanding but advised other options would need to be explored as he is medically cleared for discharge. JULIAN contacted patient's son, Kevin and brother, Walter to update them.
[2022-04-09 19:53] VITALS: BP 128/88; PULSE 96; TEMP 98.4
[2022-04-09 23:15] VITALS: BP 121/85; PULSE 89; TEMP 97.3
[2022-04-10 03:39] VITALS: BP 117/81; PULSE 86; TEMP 97.9
[2022-04-10 07:12] VITALS: BP 107/86; PULSE 90; TEMP 98.1
--- NOTE | 2022-04-10 08:30 | NUR ---
0830 Pt awake and sitting up in bed. Morning medications administered. AP RRR. LCTA. BSx4. INT in L wrist intact; no edema, redness, or filtration. Pedal pulses noted. Pt stated he had minimal pain on R knee; Lidocaine patch applied. Discussed options with Pt to encourage BM as Pts last BM was on admission. Call light within reach.
[2022-04-10 11:34] VITALS: BP 90/71; PULSE 101; TEMP 97.7
[2022-04-10 15:31] VITALS: BP 110/69; PULSE 93; TEMP 98.3
--- NOTE | 2022-04-10 15:55 | NUR ---
Gusset Maker spoke with Albert at [facility] who advised they can accept tomorrow with insurance authorization. JULIAN contacted [facility] and due to timing, they need a new request. JULIAN faxed clinicals to request new auth. JULIAN contacted patient's son, Kevin with update.
--- NOTE | 2022-04-10 16:28 | NUR ---
Web Production Assistant received a call from [employer]. Auth approved starting tomorrow, 04/11/22. Auth ID # is [id number]. Auth information provided to Albert at [facility]. Discharge Plan: [facility] tomorrow
[2022-04-10 19:47] VITALS: BP 112/84; PULSE 86; TEMP 98.5
[2022-04-10 23:38] VITALS: BP 105/79; PULSE 84; TEMP 98.1
[2022-04-11 03:39] VITALS: BP 103/75; PULSE 85; TEMP 98.3
[2022-04-11 07:17] VITALS: BP 102/72; PULSE 85; TEMP 98.3
--- NOTE | 2022-04-11 08:00 | NUR ---
Assessment complete. A&Ox4. Denies pain, nausea and shortness of breath. VS stable. Neuros WNL. LCTA. Has has several loose stools this AM. Plan of care discussed for this shift to include meds, calling for questions/concerns and possible discharge to [facility]. Verbalizes understanding. Call light in reach. Will monitor.
[2022-04-11] MEDS ORDERED: TOPROL XL 50MG50 MG PO (09:29)
[2022-04-11] MEDS ORDERED: MIRALAX PA17 GM/Dose PO (09:30)
[2022-04-11] MEDS ORDERED: DULCOLAX STOOL100 MG PO (09:30)
[2022-04-11] MEDS ORDERED: MAG-OX 400400 MG/TAB PO (09:31)
[2022-04-11] MEDS ORDERED: DUO-KAPS1 CAP PO (09:31)
[2022-04-11] MEDS ORDERED: PROBIOTIC-MAJOR PO (09:31)
[2022-04-11] MEDS ORDERED: ASPIRIN E.C. 8181 MG PO (09:31)
[2022-04-11] MEDS ORDERED: THIAMINE 1100 MG/TAB PO (09:31)
[2022-04-11] MEDS ORDERED: ZYLOPRIM 100MG100 MG PO (09:31)
[2022-04-11] MEDS ORDERED: DESYREL 100MG100 MG PO (09:31)
[2022-04-11] MEDS ORDERED: FOLIC ACID 11 MG/TA1 PO (09:31)
[2022-04-11 12:03] VITALS: BP 109/79; PULSE 94
--- NOTE | 2022-04-11 12:10 | NUR ---
Sitting up in bed eating lunch. Covid results given. Informed possible DC around 1300 today. INT to left wrist DCd-cath intact. Will assist with packing belongings when transportation arrives.
--- NOTE | 2022-04-11 12:49 | NUR ---
Portrait Consultant contacted Albert at [facility] and faxed discharge orders and negative covid results. Tentative transport time set for 1330. SW met with patient and presented IM form. Patient verbalized understanding and provided signature. Patient is agreeable to discharge plan. SW placed form in chart and provided copy to patient. SW also contacted patient's son, Kevin and notified him of discharge. Discharge Plan: [facility]
--- NOTE | 2022-04-11 14:39 | NUR ---
[facility] staff here to transport patient. Belongings given to patient. Discharge packet provided to transport staff. Will call report to staff.
== END 2022-04-11 14:40 | DRG 872 ==
LOC: COL.ER 10:48 → MEDICAL 15:37
PROVIDERS: Emergency Medicine; Internal Medicine; Physician Assistant; ADMIT Internal Medicine
DX: A41.9 Sepsis, unspecified organism (principal); N39.0 Urinary tract infection, site not specified; E87.2 Acidosis; E44.0 Moderate protein-calorie malnutrition; F10.139 Alcohol abuse with withdrawal, unspecified; K74.60 Unspecified cirrhosis of liver; F10.10 Alcohol abuse, uncomplicated; Z20.822 Contact with and (suspected) exposure to COVID-19; I48.91 Unspecified atrial fibrillation; I12.9 Hypertensive chronic kidney disease with stage 1 through stage 4 chronic kidney disease, or unspecified chronic kidney disease; N18.2 Chronic kidney disease, stage 2 (mild); M25.551 Pain in right hip; D64.9 Anemia, unspecified; E86.0 Dehydration; E78.5 Hyperlipidemia, unspecified; E88.89 Other specified metabolic disorders; H55.00 Unspecified nystagmus; B96.20 Unspecified Escherichia coli [E. coli] as the cause of diseases classified elsewhere; M25.561 Pain in right knee; Y90.3 Blood alcohol level of 60-79 mg/100 ml; K59.00 Constipation, unspecified; D69.6 Thrombocytopenia, unspecified; Z88.5 Allergy status to narcotic agent; Z79.01 Long term (current) use of anticoagulants; Z79.82 Long term (current) use of aspirin; Z87.891 Personal history of nicotine dependence; Z68.22 Body mass index [BMI] 22.0-22.9, adult
CPT/HCPCS: 99231-AI; 99232-AI; J0696; J2060; J3480; J7120

== ENCOUNTER 2023-04-09 20:34 | Inpatient (IN) | payer MEDICARE, MEDICAID ==
[~2023-04-09] VITALS: Ht 182.9 cm; Wt 84.1 kg
[~2023-04-09 20:34] MED LIST changes: +CIPRO 500MG TA500 MG PO; +DULCOLAX STOOL100 MG PO; +MIRALAX PA17 GM/Dose PO; +TOPROL XL 50MG50 MG PO
[2023-04-09 21:55] LABS: BASO % 0.2 % (0.0-2.0); EOS # 0.1 K/mm3 (0.0-0.7); EOS % 1.3 % (0.0-4.0); GRAN # 8.1 K/mm3 (1.4-6.5); GRAN % 78.4 % (42.2-75.2); HEMATOCRIT 43.1 % (42.0-52.0); HEMOGLOBIN 14.8 g/dl (13.5-18.0); LYMPH # 1.2 K/mm3 (1.2-3.4); LYMPH % 11.6 % (20.0-51.0); MEAN CELL VOLUME 95 fl (80.0-100.0); MEAN CORPUSCULAR HEMOGLOBIN 33 pg (27-31); MEAN CORPUSCULAR HGB CONC 34 g/dl (33.0-37.0); MEAN PLATELET VOLUME 9.6 fl (7.4-10.4); MONO # 0.8 K/mm3 (0.1-0.6); PLATELET COUNT 197 K/mm3 (130-400); RED BLOOD COUNT 4.54 M/mm3 (4.20-5.60)
[2023-04-09 22:07] LABS: ALBUMIN 3.6 gm/dL (3.4-4.8); BILIRUBIN,TOTAL 0.7 mg/dL (0.2-1.2); C-REACTIVE PROTEIN 6.6 mg/dL (0.00-0.50); CALCIUM 9.2 mg/dL (8.4-10.2); CREATININE, serum 1.43 mg/dL (0.72-1.25); POTASSIUM 4.2 mmol/L (3.5-4.5); TOTAL PROTEIN 7.1 gm/dL (6.2-8.1)
[2023-04-09 22:17] LABS: ERYTHROCYTE SEDIMENTATION RATE 22 mm/hr (0-30)
[2023-04-09 22:30] LABS: SYNOVIAL FL. MONONUCLEAR 11.3 % (0-75)
[2023-04-09 22:32] LABS: SYNOVIAL FLUID WBC 59496 /mm3 (200-600)
[2023-04-09 22:33] LABS: SYNOVIAL FLUID RBC 16000 /mm3 (0-0)
[2023-04-09 22:37] LABS: SYNOVIAL FLUID APPEARANCE TURBID; SYNOVIAL FLUID COLOR YELLOW
[2023-04-10] VITALS (8 sets, daily range): BP systolic 117–144; BP diastolic 68–86; PULSE 60–81; TEMP 97.5–99
[2023-04-10] MEDS ORDERED: LIPITOR20 MG PO (00:05)
[2023-04-10] MEDS ORDERED: DESYREL 100MG100 MG PO (00:06)
[2023-04-10] MEDS ORDERED: TOPROL XL 25MG25 MG PO (00:11)
--- NOTE | 2023-04-10 01:10 | NUR ---
PT ARRIVED TO SURGICAL FLOOR VIA W/C. SETTLED INTO BED, VS TAKEN AND STABLE AT THIS TIME. NOTED SWELLING AND WARMTH TO L KNEE, COBAN BANDAGE REMOVED AT THIS TIME FROM ASPIRATION DONE IN ER. NO PUNCTURE ANITHA SEEN, NO DRAINAGE. PT REPLACED OWN COMPRESSION SLEEVE TO L KNEE PER COMFORT. PT REPORT CONSISTENT DULL PAIN TO L KNEE, REPORTS PILL GIVEN IN ER DID NOT WORK. WILL FOLLOW WITH IV FLUIDS, ANTIBIOTICS, AND PAIN MEDS PER ORDERS. PT HAS CALL LIGHT AT BEDSIDE, REVIEWED POC. STATES NO QUESTIONS OR CONCERNS AT THIS TIME.
[2023-04-10 01:30] LABS: COLLECTION METHOD CLEAN CATCH
[2023-04-10 01:38] LABS: MUCOUS Present (NOT PRESENT); SQUAMOUS EPITHELIAL 0-2 /hpf (0-10); URINE BACTERIA None Seen /hpf (NONE SEEN); URINE RBC 0-2 /hpf (0-2)
[2023-04-10 01:42] LABS: PH 5.5 (5.0-8.5); URINE APPEARANCE Clear (CLEAR/HAZY); URINE BLOOD Negative (NEGATIVE); URINE COLOR Yellow (YELLOW); URINE GLUCOSE Negative (NEGATIVE); URINE KETONE 1+ (NEGATIVE); URINE NITRATE Negative (NEGATIVE); URINE PROTEIN(semi-quant) Negative (NEGATIVE); URINE UROBILINOGEN 0.2 E.U/dL (0.2-1.0)
--- NOTE | 2023-04-10 05:38 | NUR ---
67 yo male admitted for further care and mangement of sepsis likely secondary to septic joint (L knee). ht 182.9 cm wt 79.5 kg SCr 1.43 with estimated CrCl ~50 ml/min half life 16.7 hours Plan: Will give an initial loading dose of vancomycin 1750 mg x1 (22 mg/kg); followed by a maintenance regimen of vancomycin 1250 mg q18h to target a goal trough of 15-20 mcg/ml. Will follow patient's renal function, micro data, and vancomycin levels as indicated to assess for any necessary changes to regimen. Thank you for this dosing consult.
[2023-04-10 07:10] LABS: BASO % 0.2 % (0.0-2.0); EOS # 0.1 K/mm3 (0.0-0.7); EOS % 1.4 % (0.0-4.0); GRAN # 6.2 K/mm3 (1.4-6.5); GRAN % 73.9 % (42.2-75.2); HEMATOCRIT 40.2 % (42.0-52.0); LYMPH # 1.1 K/mm3 (1.2-3.4); LYMPH % 13.4 % (20.0-51.0); MEAN CELL VOLUME 95 fl (80.0-100.0); MEAN CORPUSCULAR HEMOGLOBIN 33 pg (27-31); MEAN CORPUSCULAR HGB CONC 35 g/dl (33.0-37.0); MEAN PLATELET VOLUME 10.4 fl (7.4-10.4); MONO # 0.9 K/mm3 (0.1-0.6); MONO % 10.5 % (1.7-9.3); PLATELET COUNT 166 K/mm3 (130-400); RED BLOOD COUNT 4.25 M/mm3 (4.20-5.60); REDCELL DISTRIBUTION WIDTH-CV 13.1 % (11.5-14.5)
[2023-04-10 07:20] LABS: CALCIUM 8.9 mg/dL (8.4-10.2); CREATININE, serum 1.2 mg/dL (0.72-1.25); POTASSIUM 4.4 mmol/L (3.5-4.5)
--- NOTE | 2023-04-10 11:20 | NUR ---
Initial visit: Security Business Analyst stopped by room on rounds. Pt was resting and content. Pt has no needs. Security Business Analyst will follow up as needed.
--- NOTE | 2023-04-10 15:47 | NUR ---
Gantry Crane Operator met with patient to discuss discharge planning. PT is at bedside providing education about weight bearing status. Patient would like to return home with a cane despite recommendation for walker vs crutches. Patient lives alone in [place] in a second story apartment. Patient has 12 steps into the home and plans to use the handrail and cane to get up the stairs. Patient sees Dr. Aldridge for primary care and obtains medications by mail through a [facility] program. Patient also uses [facility] as needed. Patient has a single point cane and no other DME at this time. 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 Patient plans to return home with HH services. JULIAN provided Medicare.gov list of HH agencies and patient selected [facility] as he has used them before. Patient thinks he may have DPOA-HC but is unsure. Patient thinks it may designate his three sons. JULIAN faxed referral to [facility].
--- NOTE | 2023-04-10 15:58 | NUR ---
Watch Caser contacted Laila at [facility] and left a message inquiring about DPOA-HC paperwork. Patient's sons are Kevin, Jose, and Fady.
--- NOTE | 2023-04-10 19:00 | NUR ---
Shift summary: Pt pain slightly improved throughout shift. Educated pt several times about only using IV Fentanyl for extreme/breakthrough pain. No IV pain Rx given this afternoon. Malinda with scheduled tylenol helped to control pain. Pt voices several times that he doesn't want to go home until pain is under control. Also, does not want to go home unless able to rely solely on cane, no walker/crutches. Pt is informed that procedure will be done tomorrow and he will be NPO after midnight. Fluids continue per order to IV LFA, IV abx as ordered.
--- NOTE | 2023-04-10 21:48 | NUR ---
PT RESTIN IN BED. A&OX4. PLEASANT AND COOPERATIVE. SEE COMPLETED ASSESSMENT. ICE PACK TO LT KNEE. STARTED VANCO. NS INFUSING TO RT F/A AT 100CC/HR. JUST FINISHED DINNER. CALL LIGHT IN REACH. BED ALARM SET.
[2023-04-11] VITALS (22 sets, daily range): BP systolic 116–143; BP diastolic 66–105; PULSE 63–78; TEMP 97.9–98.5
--- NOTE | 2023-04-11 | NUR ---
NPO AT THIS TIME.
--- NOTE | 2023-04-11 05:15 | NUR ---
PT AWAKE C/O LT KNEE PAIN. LEVEL 7-8/10. SEE MAR FOR ROXICODONE 10MG PO GIVEN WITH LITTLE SIP OF WATER. HAS BEEN NPO SINCE MIDNIGHT. ICE PACK REFRESHED. CALL LIGHT IN REACH.
[2023-04-11] MEDS ORDERED: ATARAX 25MG25 MG/TAB PO (08:31)
--- NOTE | 2023-04-11 09:00 | NUR ---
Pt doing well this morning. Pt reports that his pain is tolerable at this time. Pt aware that he will be having surgery today, plan is for around noon. Pt is in street clothes, informed him we would have him get cleaned up and put on a gown prior to surgery.
--- NOTE | 2023-04-11 11:00 | NUR ---
Pt had sponge bath and changed him in to a hospital gown.
--- NOTE | 2023-04-11 11:45 | NUR ---
IV to left forearm leaking, new IV started in right wrist. Received phone call while in room that surgery would be pushed paperback machine operator to 2pm. Updated pt while in room
--- NOTE | 2023-04-11 13:42 | NUR ---
Pt off the floor for surgery
--- NOTE | 2023-04-11 14:49 | NUR ---
Tub Puller received message from Laila at [facility] that they do not have any Advance Directives on file. Patient to have surgery today. JULIAN also contacted [facility] and left a message for Brea in Admissions.
--- NOTE | 2023-04-11 15:30 | NUR ---
General Road Supervisor spoke with Mary at [facility] who advised they can accept patient at time of discharge. Discharge Plan: Home with [facility]
--- NOTE | 2023-04-11 16:00 | NUR ---
Pt back from surgery. He is awake and alert. He reports that his pain is tolerable at this time. DRSG to left knee is CDI. Hemovac drain to compression. Informed pt that he can order some food when he is ready. Educated pt how, he stated he was comfortable ordering
--- NOTE | 2023-04-11 20:15 | NUR ---
Assessment complete. A&Ox4. Denies nausea/shortness of breath. Rating pain 2/10 on pain scale-described as constant ache. Denies need for intervention. Ice pack in place. VS remain stable. Currently on room air. Tele reporting SR. SCD/JANETH right lower ext. Good CMS. NS@100ml/hr to right wrist without difficulty. Plan of care discussed for this shift to include meds/pain control/calling for questions/concerns. Call light in reach. Will monitor.
--- NOTE | 2023-04-11 20:20 | NUR ---
Patient c/o pain to left knee-requested pain medications but when this nurse went to take him the medications he stated he would like to wait that the ice pack is helping and pain is rated only 2/10 at this time. Instructed to call if pain level increases and if there is a need for medications.
--- NOTE | 2023-04-11 22:12 | NUR ---
Patient called rating pain 6/10 on pain scale to kasia richards-described as constant throbbing. Oxycodone given per dr dumont. Will monitor.
--- NOTE | 2023-04-11 23:40 | NUR ---
PCT reported BP of 120s/100s. Recehcked at this time by this nurse-120s/80s.
[2023-04-12] VITALS (10 sets, daily range): BP systolic 120–147; BP diastolic 69–92; PULSE 58–68; TEMP 97.9–98.7
--- NOTE | 2023-04-12 04:04 | NUR ---
Patient called with c/o pain to left knee-rating pain 7/10-described as constant throbbing. Oxycodone/scheduled tylenol given per dr order.
--- NOTE | 2023-04-12 05:22 | NUR ---
Patient had an uneventful night. Received oxycodone for pain twice with good pain control. Denied shortness of breath/nausea. Bulky white dressing wrapped in sonia remained CDI. Ice pack PRN per order. SCD/Teds on. Denies current needs. Call light in reach. Will monitor.
[2023-04-12 07:00] LABS: BASO % 0.2 % (0.0-2.0); GRAN # 5.6 K/mm3 (1.4-6.5); GRAN % 86.3 % (42.2-75.2); HEMATOCRIT 37.6 % (42.0-52.0); HEMOGLOBIN 12.7 g/dl (13.5-18.0); LYMPH # 0.5 K/mm3 (1.2-3.4); LYMPH % 8.2 % (20.0-51.0); MEAN CELL VOLUME 96 fl (80.0-100.0); MEAN CORPUSCULAR HEMOGLOBIN 33 pg (27-31); MEAN CORPUSCULAR HGB CONC 34 g/dl (33.0-37.0); MEAN PLATELET VOLUME 10.4 fl (7.4-10.4); MONO # 0.3 K/mm3 (0.1-0.6); MONO % 4.5 % (1.7-9.3); PLATELET COUNT 206 K/mm3 (130-400); REDCELL DISTRIBUTION WIDTH-CV 12.6 % (11.5-14.5)
--- NOTE | 2023-04-12 07:00 | NUR ---
PATIENT ASLEEP, RESTING IN BED. PATIENT AROUSES EASILY TO NAME. HEMOVAC INTACT AND TO SUCTION. IVF INFUSING. PATIENT DENIES ANY NEEDS OR COM[LAINTS AT THIS TIME. CALL LIGHT WITHIN REACH.
[2023-04-12 07:14] LABS: C-REACTIVE PROTEIN 9.48 mg/dL (0.00-0.50); CREATININE, serum 1.09 mg/dL (0.72-1.25); POTASSIUM 4.5 mmol/L (3.5-4.5)
--- NOTE | 2023-04-12 10:55 | NUR ---
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 He talked about his experiences with customers. Patient has very positive outlook. Doctor arrived to visit with Patient so Assistant Operator ended visit.
--- NOTE | 2023-04-12 11:05 | NUR ---
PATINET AWAKE AND ALERT, RESTING IN BED. PATINET DENIES AY NEEDS OR COMPLAINTS AT THIS TIME. CALL LIGHT WITHIN REACH.
--- NOTE | 2023-04-12 14:05 | NUR ---
PATINET AWAKE AND ALERT, RESTING IN BED. PATINET DENIES ANY NEEDS OR COMPLAINTS AT THIS TIME. PATIENTS CALL LIGHT WITHIN REACH.
--- NOTE | 2023-04-12 20:42 | NUR ---
Patient assessed around this time, see shift assesment. still with IV infusing well on left forearm, NS at 100cc/hr, dressing to left knee CDI with hemovac, denies the need for pain meds at this time, denies further needs at this time, call light and personal items within reach, will continue to monitor.
[2023-04-13] VITALS (9 sets, daily range): BP systolic 115–147; BP diastolic 64–84; PULSE 62–81; TEMP 97.9–98.3
--- NOTE | 2023-04-13 07:35 | NUR ---
Dr. Reyna d/c hemovac to L knee. Sutures x 3 remain intact to puncture sites. Bleeding from drain site stopped quickly. No other drainage noted. Provider places guaze, ITZEL and sonia wrap to knee.
--- NOTE | 2023-04-13 19:48 | NUR ---
REPORT RECIEVED FROM NIKI MELARA. PT RESTING IN BED WATCHING FOOTBALL. NO C/O PAIN. CALL LIGHT IN PLACE. ALL NEEDS MET AT THIS TIME.
--- NOTE | 2023-04-13 20:53 | NUR ---
PT CONTINUES RESTING IN BED WATCHING FOOTBALL. PT REPORTED PAIN, PRN ADMINISTERED. SHIFT ASSESSMENT COMPLETE, SEE DOCUMENTATION. CALL LIGHT IN PLACE. ALL NEEDS MET AT THIS TIME.
[2023-04-14] VITALS (12 sets, daily range): BP systolic 115–163; BP diastolic 83–96; PULSE 71–78; TEMP 98.1–98.9
--- NOTE | 2023-04-14 08:15 | NUR ---
consulted Heidi MELARA for PICC line placement.
--- NOTE | 2023-04-14 08:52 | NUR ---
PT UP FOR BREAKFAST. ATE 100 % NO N/V. PAIN WELL CONTROLLED WITH PO MEDS. SANDRO GRECO IN TO CHANGE DRESSING. INCISIONS CDI. PT TOLERATED WELL. PICC LINE TO BE PLACED BY MADELIN MELARA AIV. SHE IS AWARE. DISCHARGE PLAN IS HOME WITH HH AND OUT PATIENT ABX.
--- NOTE | 2023-04-14 11:32 | NUR ---
Transplanter Orchid collaborated with Treatment Team to assess Patietn for discharge. Physician assesses Patient to need assessed in the morning with anticipated discharge of tomorrow, 04-15-23. Patient is awaiting ID perspective on antibiotics. SW will follow to assess for IV antibiotics for discharge.
--- NOTE | 2023-04-14 19:16 | NUR ---
REPORT RECIEVED FROM DORY MELARA. PT RESTING IN BED, EATING DINNER AND WATCHING TV. NO C/O PAIN OR DISCOMFORT. CALL LIGHT IN PLACE. ALL NEEDS MET AT THIS TIME.
--- NOTE | 2023-04-14 21:02 | NUR ---
SHIFT ASSESSMENT COMPLETE, SEE DOCUMENTATION. PT RESTING IN BED WATCHING FOOTBALL. C/O PAIN REGARDING THE LEFT KNEE, PRN OXYCODONE 10MG ADMINISTERED. LEFT FOREARM IV INFILTRATED SO IT WAS REMOVED. PT DENIES ANY OTHER CONCERNS. CALL LIGHT IN PLACE. ALL NEEDS MET AT THIS TIME.
[2023-04-15] VITALS (8 sets, daily range): BP systolic 124–161; BP diastolic 85–99; PULSE 74–82; TEMP 78–98.8
[2023-04-15 07:38] LABS: C-REACTIVE PROTEIN 10.72 mg/dL (0.00-0.50); CALCIUM 9.2 mg/dL (8.4-10.2); CREATININE, serum 1.09 mg/dL (0.72-1.25); MAGNESIUM 1.8 mg/dL (1.6-2.6)
--- NOTE | 2023-04-15 07:45 | NUR ---
PT SITTING UP IN BED, ALERT AND ORIENTEDX4. RATES PAIN IN THE LEFT KNEE 5/10. DRESSING IS CLEAN, DRY, INTACT. PICC LINE FLUSHES AND DRAWS BACK BLOOD. GAVE MORNING MEDS. BREAKFAST ORDERED. CALL LIGHT WITHIN REACH.
--- NOTE | 2023-04-15 10:05 | NUR ---
PT RESTING IN BED PAIN 4/10 IN L KNEE. DRESSING CLEAN, DRY, AND INTACT. DISCUSSED AMBULATING TO BATHROOM TO URINATE INSTEAD OF URINAL. DISCUSSED WALKING STAIRS WITH THERAPY BEFORE DISCHARGE HOME TO SECOND FLOOR APARTMENT. NO QUESTIONS AT THIS TIME. WILL CONTINUE TO MONITOR.
--- NOTE | 2023-04-15 12:59 | NUR ---
Workers Compensation Manager was informed by physician that Patient will discharge needing IV Antibiotics. SW met with Patient to discuss discharge planning. Patient states that he feels uncomfortable returning home do tohaving 12 steps to enter his home on the second floor of his apartment building. Per PT, Patient has been declining to work with stairs while admitted. SW and Nurse spoke with Patient to brief the need to assess Patient's ability to use stairs to discharge safely home. Patient agreed to meet with PT to be evaluated on his ability ro use stairs. Per PT, Patient is able to use stairs though it is recommended that he has assistance/standby assistance. Patient continues to feel unsafe to discharge home. Physician referred Patient to [facility], [facility] declines at this time. SW provided Patient with Medicare.gov list of post-acute servicing providers as well as the Patient Preference form. Patient selects [facility] for placment. Walter signs Preference form, Original placed in chart, copy provided to Patient. Workers Compensation Manager sent referrals to [facility] and [facility]. [facility] reports to accept Patient for services pending [facility] authorization for skilled services.
--- NOTE | 2023-04-15 16:35 | NUR ---
REPORT RECEIVED FROM PACU NURSE. PT UP TO FLOOR AT THIS TIME. PT STATES NO PAIN, A/O X4, VITALS STABLE, FAMILY AT BEDSIDE. BANDAIDS AND GAUZE TO MIDLINE INCISION WITH MARKED DRAINAGE, DRY, AND INTACT. WILL CONTINUE TO MONITOR.
--- NOTE | 2023-04-15 17:54 | NUR ---
NICOLE GRECO CALLED TO DISCUSS PT COMPLAINS OF CURRENT MEDICATION REGIMEN NOT CONTROLING PAIN. VERBAL ORDERS PROVIDED.
--- NOTE | 2023-04-15 19:19 | NUR ---
REPORT RECIEVED FROM PRINCESS MELARA. PT RESTING IN BED WATCHING TV. PT STATED THE TRAMADOL IS RELEIVING HIS PAIN. PT HAS NO CONCERNS OR COMPLAINTS. CALL LIGHT IN PLACE. ALL NEEDS MET AT THIS TIME.
--- NOTE | 2023-04-15 22:33 | NUR ---
SHIFT ASSESSMENT COMPLETE, SEE DOCUMENTATION. PT RESTING IN BED WATCHING TV. CONTINUED C/O PAIN BUT STATES THE PRN MEDICATIONS ARE RELIEVING PAIN. PT CHANGED INTO SHORTS AND A TSHIRT FOR COMFORT. NO CONCERNS AT THIS TIME. BED ALARM ON. CALL LIGHT IN PLACE. ALL NEEDS MET AT THIS TIME.
[2023-04-16] VITALS (8 sets, daily range): BP systolic 125–149; BP diastolic 78–84; PULSE 68–80; TEMP 97.1–98
[2023-04-16] MEDS ORDERED: ROCEPHIN 2GM VIAL21 IV (07:27)
--- NOTE | 2023-04-16 08:00 | NUR ---
pt resting in bed watching tv, finished breakfast. vss and tele in place. pt rates pain a 5/10. left knee dressing is cdi. PICC to adri flushes well w good blood return. pt denies needs at this time. call light in reach.
--- NOTE | 2023-04-16 09:48 | NUR ---
pt ambulating in the halls w PT
--- NOTE | 2023-04-16 11:56 | NUR ---
Railroad Surveyor contacted [facility] to follow-up on Skilled Authorization request. [facility] rep states that there is no authorization on record and assists this SW with initiating the authorization. SW faxed clinical packet to support authorization request.
--- NOTE | 2023-04-16 14:14 | NUR ---
Craniologist contacted [facility] to request update on Patient's request for [facility] Authorization. [facility] Rep states that she is unable to proide update do to systems being down at this time.
[2023-04-16] MEDS ORDERED: TYLENOL 325MG325 MG PO (14:38)
--- NOTE | 2023-04-16 15:41 | NUR ---
called report to nurse at [facility], all questions answered. requesting script for pain medications to be sent, will discuss with hospitalist.
[2023-04-16] MEDS ORDERED: DAZIDOX10 MG PO ×3 (15:53→16:01)
== END 2023-04-16 15:30 | DRG 549 ==
LOC: COL.ER 20:34 → SURG 23:16 → EDBEDREQ 23:40 → SURG 04-10 10:36
PROVIDERS: Emergency Medicine; Internal Medicine; Nurse Practitioner Family; Physician Assistant; ADMIT Internal Medicine
DX: M00.9 Pyogenic arthritis, unspecified (principal); I47.20 Ventricular tachycardia, unspecified; Q61.3 Polycystic kidney, unspecified; I10 Essential (primary) hypertension; E78.5 Hyperlipidemia, unspecified; I48.91 Unspecified atrial fibrillation; F10.10 Alcohol abuse, uncomplicated; N18.9 Chronic kidney disease, unspecified; R53.81 Other malaise
CPT/HCPCS: C1751; J0696; J1100; J1644; J2405; J2543; J2704; J3010; J3370; J7030; J7040; J7050; J7120; Q3014